=== PATIENT | female | born 1960 | race Caucasian/White ===

== ENCOUNTER 2018-09-01 08:15 | Outpatient (CLI) | payer BC ==
[2018-09-01] MEDS ORDERED: OMNIPAQUE 350 MG/ML, 100ML BOTTLE ONE (13:08)
== END 2018-09-01 23:59 | disposition home or self-care (01) ==
LOC: CFH 08:15
PROVIDERS: ATTEND Nurse Practitioner Family
DX: D25.9 Leiomyoma of uterus, unspecified (principal); R59.0 Localized enlarged lymph nodes
CPT/HCPCS: 74177; Q9967

== ENCOUNTER → 2019-01-05 | Outpatient (CLI) | payer BC | END | disposition home or self-care (01) | LOC: RAD 09:26 | PROVIDERS: ATTEND Nurse Practitioner Family | DX: K40.20 Bilateral inguinal hernia, without obstruction or gangrene, not specified as recurrent (principal) | CPT/HCPCS: 76857 ==

== ENCOUNTER 2019-02-12 08:08 | Outpatient (CLI) | payer BC | END 2019-02-12 23:59 | disposition home or self-care (01) | LOC: STAR 08:08 | PROVIDERS: ATTEND Thoracic Surgery (Cardiothoracic Vascular Surgery) | DX: Z02.9 Encounter for administrative examinations, unspecified (principal) ==

== ENCOUNTER 2019-02-17 06:35 | Day surgery (SDC) | payer BC ==
[~2019-02-17] VITALS: Ht 166.4 cm; Wt 53.2 kg
== END 2019-02-17 13:20 | disposition home or self-care (01) ==
LOC: OUT 06:35 → UNDOADMOB 08:35 → ORIP 08:35 → OUT 13:20
PROVIDERS: ATTEND Thoracic Surgery (Cardiothoracic Vascular Surgery)
DX: K41.20 Bilateral femoral hernia, without obstruction or gangrene, not specified as recurrent (principal); K45.8 Other specified abdominal hernia without obstruction or gangrene; E03.9 Hypothyroidism, unspecified; Z79.890 Hormone replacement therapy; Z87.891 Personal history of nicotine dependence; Z98.890 Other specified postprocedural states; Z82.49 Family history of ischemic heart disease and other diseases of the circulatory system; Z83.3 Family history of diabetes mellitus; Z81.8 Family history of other mental and behavioral disorders; Z80.1 Family history of malignant neoplasm of trachea, bronchus and lung
CPT/HCPCS: 49659; C1727; C1781; J0171; J0330; J0690; J1885; J2250; J2704; J3010; J7120

== ENCOUNTER → 2020-02-09 | Outpatient (CLI) | payer BC ==
[~2020-02-09] MED LIST: OMNIPAQUE 350 MG/ML, 100ML BOTTLE ONE; THYR15TA PO
== END | disposition home or self-care (01) ==
LOC: CFH 13:19
PROVIDERS: ATTEND Thoracic Surgery (Cardiothoracic Vascular Surgery)
DX: D25.9 Leiomyoma of uterus, unspecified (principal); M47.817 Spondylosis without myelopathy or radiculopathy, lumbosacral region; J84.10 Pulmonary fibrosis, unspecified
CPT/HCPCS: 74177; Q9967